=== PATIENT | female | born 1975 | race Hispanic/Latino ===

== ENCOUNTER 2019-12-15 10:31 | Emergency (ER) | payer MEDICAID, SELFPAY ==
[2019-12-15] MEDS ORDERED: Ketorolac Tromethamine 30 MG/ML VIAL ONE (12:50)
--- NOTE | 2019-12-15 13:02 | RAD ---
RIGHT WRIST RADIOGRAPHS 3 VIEWS: DATE: 12/15/2019. PROVIDED CLINICAL HISTORY: Pain status post injury. FINDINGS: There is no evidence for a fracture or other acute osseous abnormality. If there is persistent clini anita concern, conservative management and followup imaging are advised. IMPRESSION: As above. POS: [facility]
== END 2019-12-15 13:16 | disposition home or self-care (01) ==
LOC: ERS 10:31
DX: S63.501A Unspecified sprain of right wrist, initial encounter (principal); X50.1XXA Overexertion from prolonged static or awkward postures, initial encounter
CPT/HCPCS: 96372; J1885

== ENCOUNTER 2022-12-07 08:02 | Outpatient (CLI) | payer BC ==
[2022-12-07] MEDS ORDERED: Iopamidol 370 76% 100 ML VIAL ONE (12:06)
== END 2022-12-07 08:03 | disposition home or self-care (01) ==
LOC: CT 08:02
PROVIDERS: ATTEND Obstetrics & Gynecology Gynecologic Oncology
DX: R19.03 Right lower quadrant abdominal swelling, mass and lump (principal); J90 Pleural effusion, not elsewhere classified; R91.8 Other nonspecific abnormal finding of lung field
CPT/HCPCS: 71275; Q9967

== ENCOUNTER 2023-05-24 15:32 | Outpatient (CLI) | payer BC | END 2023-05-24 15:33 | disposition home or self-care (01) | LOC: BICMAMMO 15:32 | PROVIDERS: ATTEND Family Medicine | DX: Z12.31 Encounter for screening mammogram for malignant neoplasm of breast (principal); Z80.3 Family history of malignant neoplasm of breast; Z85.42 Personal history of malignant neoplasm of other parts of uterus | CPT/HCPCS: 77063; 77067 ==